=== PATIENT | female | born 1995 | race Hispanic/Latino ===

== ENCOUNTER 2019-11-11 12:08 | Day surgery (SDC) | payer OTHER ==
[2019-11-11 12:39] VITALS: BMI 40.1
[2019-11-11] MEDS ORDERED: hydrALAZINE 20 MG/ML VIAL SLOW IVP PRN (13:01)
[2019-11-11] MEDS ORDERED: Acetaminophen 500 MG TAB PO SCH (13:57)
--- NOTE | 2019-11-11 14:01 | PDOC.LDHP ---
Labor and Delivery H&P Chief complaint: other HPI: 24 y/o G1 at 26w0d, patient of Dr. Ortiz, presents after falling backward and hitting her flank on the counter. Has a headache and some point tenderness on her flank but denies abdominal pain, VB, LOF, or other concerns. +FM ROS neg for HEENT, cv, pulm, gi, gu, neuro, psych, skin, musculoskeletal or constitutional symptoms other than mentioned above. OB History Details: First Current complications: other ( abnormality (kidney?)) Past Medical History: None Current medications: pre-tanika vitamins Previous surgical history: none Allergies/Adverse Reactions: Allergies Allergy/AdvReac Type Severity Reaction Status Date / Time No Known Allergies Allergy Verified 11/11/19 12:35 Social history: none - Physical Exam Vital signs reviewed and normal: yes General: NAD, resting Lungs: nonlabored breathing Abdomen: gravid Extremeties: no edema FHT: category 1 (120s, mod variability, + accels, no decels) [place] contractions every: None - Assessment 24 y/o G1 at 26w0d with reassuring status. Point tenderness on exam but no abdominal trauma. No e/o abruption or other acute process. Reactive NST. - Plan -: D/c home with precautions. Advised to keep all appointments.
== END 2019-11-11 14:38 | disposition home health service (06) ==
LOC: L&D/OP 12:08
PROVIDERS: ATTEND Obstetrics & Gynecology
DX: O99.89 Other specified diseases and conditions complicating pregnancy, childbirth and the puerperium (principal); R10.819 Abdominal tenderness, unspecified site; Z3A.26 26 weeks gestation of pregnancy; Z87.891 Personal history of nicotine dependence
CPT/HCPCS: 99282

== ENCOUNTER 2019-12-13 19:47 | Day surgery (SDC) | payer OTHER ==
[2019-12-13 20:34] VITALS: BP 106/58; TEMP 98.9; BMI 40.7
--- NOTE | 2019-12-13 21:27 | PDOC.LDHP ---
Labor and Delivery H&P Chief complaint: abdominal pain HPI: 24yo @ 30.4 wks by LMP and T1 sono presents to L&D with complaint of abdominal pain. Pt states this started yesterday afternoon. Notes she has been having more pain in her vagina and pelvis over last couples weeks which she attributed to her baby growing into her pelvis. She noted to nursing staff that she had sexual intercourse within in the last 2 days. Denies any vaginal bleeding, new vaginal discharge, LOF, decreased FM. Pt did note she experienced burning and pressure with urination today. Pt notes that she is followed by MFM in [place] for asymmetric renal growth and restricted growth of the babies chest. Her next appointment with PCP, Dr. Ortiz , is next week and [place] in 2 weeks. Current gestational age (weeks): 30 (4) Due date: 02/17/20 Dating criteria: last menstrual period, first trimester ultrasound Grav: 1 Para: 0 Current complications: other Abnormal US findings: Yes (US has seen disproportionate renal growth and restricted growth of thorax) Current medications: pre-tanika vitamins Previous surgical history: none Allergies/Adverse Reactions: Allergies Allergy/AdvReac Type Severity Reaction Status Date / Time No Known Allergies Allergy Verified 12/13/19 20:25 Social history: none - Physical Exam Vital signs reviewed and normal: yes General: NAD Heart: RRR Lungs: nonlabored breathing Abdomen: gravid (mild lower abdominal/suprapubic tenderness) Extremeties: no edema FHT: category 1, variability present [place] contractions every: No visible contractions - OB Labs Blood type: O RH: positive - Assessment Normal 3rd Trimester - Plan -: Findings -Vitals: All WNL -UA: Neg -NST: Reactive, FHR 135 -Pt is not contacting on toco and expresses absolutely no vaginal bleeding or loss of fluid so vaginal exam was not indicated -Abdominal pain improved with tylenol Plan: Patient's pain is likely related to combination of descent and movement. Findings this evening were all reassuring of good status. DC home, continue routine care and specialist follow up. I have discussed the above plan and findings with my attending, Dr. Jael Coles, who agrees. Moshe Ramirez PGY2 Addendum - Attending - Attending Attestation Date/Time: 12/14/19 0615 I personally evaluated the patient and discussed the management with Dr. Ramirez. I agree with the History, Examination, Assessment and Plan documented above with any addition or exceptions noted below. Patient with likely musculoskeletal discomforts of . Comfort measures discussed.
[2019-12-13] MEDS ORDERED: Acetaminophen 500 MG TAB PO SCH (21:30)
[2019-12-13 22:04] LABS: Bacteria/HPF None Seen HPF (None Seen); Bilirubin Negative (Negative); Blood, Urine Negative (Negative); Clarity Clear (Clear); Glucose, Urine (Dipstick) Normal (Negative); Leukocyte Negative Leu/uL (Negative); Nitrite Negative (Negative); Protein, Urine (Dipstick) Negative (Neg-Trace); RBC/HPF 0-3 HPF (0-3); Squamous Epithelial 0-3 HPF (0-3); Urobilinogen Normal mg/dL (Less than 2); WBC/HPF 0-3 HPF (0-3)
== END 2019-12-13 22:28 | disposition home or self-care (01) ==
LOC: L&D/OP 19:47
PROVIDERS: ATTEND Obstetrics & Gynecology
DX: O99.89 Other specified diseases and conditions complicating pregnancy, childbirth and the puerperium (principal); R10.9 Unspecified abdominal pain; O36.5930 Maternal care for other known or suspected poor fetal growth, third trimester, not applicable or unspecified; Z3A.30 30 weeks gestation of pregnancy
CPT/HCPCS: 81001